=== PATIENT | male | born 1975 | race Caucasian/White ===

== ENCOUNTER 2019-08-18 08:42 | Emergency (ER) | payer BC, MEDICARE ==
--- NOTE | 2019-08-18 09:32 | EDM.PDOC ---
ED HPI GENERAL MEDICAL PROBLEM - General Chief Complaint: Lower Extremity Injury/Pain Stated Complaint: INNER THIGH PAIN POST SURGERY 9 DAYS Time Seen by Provider: 08/18/19 09:32 Source of Information: Reports: Patient History Limitations: Reports: No Limitations - History of Present Illness INITIAL COMMENTS - FREE TEXT/NARRATIVE: 43-year-old male who had a pacemaker placed on 08/09/2019 and also had cardiac catheterization performed with a right femoral approach on the same day. He has been doing well with both areas until middle of last week when he felt a pulling sensation in his right groin area and since that time has had pain which has developed just below the cardiac catheterization access site in his right groin and it has spread down his right medial thigh to just above his knee. This pain is worse with movements and when he tries to walk and he feels at times that his leg will "give out on him". The pain has been a 9/10 to the point of where he feels almost like crying and it is a sharp and shooting pain. He has had some mild nausea associated with the pain but no vomiting. No chest pain. No difficulty breathing. The site around his pacemaker in his left upper chest has some pain but it is improving and there is no redness associated with it. He has had no fevers or chills. He has known numbness or tingling in his right lower leg or foot. There are no other associated signs or symptoms. There are no other modifying factors. 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: Reports: Other (see below) (Nothing) Right Upper Leg Pain Score (Numeric/FACES): 8 - Related Data Allergies Allergy/AdvReac Type Severity Reaction Status Date / Time azithromycin [From Zithromax] Allergy Vomiting Verified 08/18/19 09:02 Home Meds: Home Meds Hydrocodone/Acetaminophen [[facility] 5-325 Tablet] 1 - 2 tab PO Q6H PRN #12 tablet 08/18/19 [Rx] Sacubitril/Valsartan [Entresto 24 mg-26 mg Tablet] 1 tab PO BID 08/18/19 [ History] carvediloL [Carvedilol] 3.125 mg PO BID 08/18/19 [History] cephALEXin [Cephalexin] 500 mg PO BID 08/18/19 [History] Past Medical History Cardiovascular History: Reports: Cardiomyopathy, Pacemaker Respiratory History: Reports: Sleep Apnea Gastrointestinal History: Reports: Chronic Diarrhea Musculoskeletal History: Reports: Muscular Dystrophy Neurological History: Reports: Migraines Psychiatric History: Reports: Anxiety, Depression - Past Surgical History HEENT Surgical History: Reports: Adenoidectomy, LASIK, Tonsillectomy Cardiovascular Surgical History: Reports: Pacer, Other (See Below) (Cardiac catheterization with (according to the patient) clean coronary arteries) GI Surgical History: Reports: Cholecystectomy Social & Family History - Family History Cardiac: Reports: Blood Clots/VTE/DVT - Tobacco Use Smoking Status *Q: Never Smoker - Alcohol Use Alcohol Use History: No - Living Situation & Occupation Occupation: Disabled Review of Systems - Review of Systems Review Of Systems: See Below Constitutional: Reports: No Symptoms Eyes: Reports: No Symptoms Ears: Reports: No Symptoms Nose: Reports: No Symptoms Mouth/Throat: Reports: No Symptoms Respiratory: Reports: No Symptoms Cardiovascular: Reports: No Symptoms GI/Abdominal: Reports: No Symptoms Genitourinary: Reports: No Symptoms Musculoskeletal: Reports: Leg Pain (Right medial thigh pain) Skin: Reports: Bruising (Along right medial thigh) Neurological: Reports: No Symptoms (Specifically, no weakness or dizziness.) ED EXAM, GENERAL - Physical Exam Exam: See Below Exam Limited By: No Limitations General Appearance: Alert, WD/WN, No Apparent Distress Eye Exam: Bilateral Eye: EOMI, Normal Inspection Ears: Normal External Exam, Hearing Grossly Normal Ear Exam: Bilateral Ear: Auricle Normal Nose: Normal Inspection, Normal Mucosa, No Blood Throat/Mouth: Normal Inspection, Normal Lips, Normal Oropharynx, Normal Voice, No Airway Compromise Head: Atraumatic, Normocephalic Neck: Normal Inspection, Supple, Non-Tender, Full Range of Motion Respiratory/Chest: No Respiratory Distress, Lungs Clear, Normal Breath Sounds, No Accessory Muscle Use, Chest Non-Tender, Prolonged Expiration Cardiovascular: Regular Rate, Rhythm, No JVD, No Murmur Peripheral Pulses: 2+: Radial (L), Radial (R), Femoral (R), Dorsalis Pedis (L), Dorsalis Pedis (R) GI/Abdominal: Normal Bowel Sounds, Soft, Non-Tender, No Mass Back Exam: Normal Inspection, Full Range of Motion Extremities: Normal Range of Motion, No Pedal Edema, Normal Capillary Refill, Other (Right groin area with some ecchymosis but I can feel no pulsatile mass and no definite hematoma.) Neurological: Alert, Oriented, CN II-XII Intact, Normal Cognition, No Motor/ Sensory Deficits Skin Exam: Warm, Dry, Intact, No Rash, Ecchymosis (Ecchymosis around the pacemaker site but no erythema. Some ecchymosis around the femoral area.) Course - Vital Signs Last Recorded V/S: Last Vital Signs Temp 37.2 C 08/18/19 10:49 Pulse 64 08/18/19 10:49 Resp 18 08/18/19 10:49 BP 106/64 08/18/19 10:49 Pulse Ox 92 L 08/18/19 10:49 - Orders/Labs/Meds Meds: Medications Discontinued Medications Generic Name Dose Route Start Last Admin Trade Name Patricia PRN Reason Stop Dose Admin Acetaminophen 325 mg 08/18/19 10:26 08/18/19 11:07 Tylenol PO 08/18/19 10:27 325 mg NOW ONE Administration Hydrocodone Bitart/Acetaminophen 1 tab 08/18/19 10:26 08/18/19 11:07 [facility] 325-5 Mg PO 08/18/19 10:27 1 tab ONETIME ONE Administration - Re-Assessments/Exams Free Text/Narrative Re-Assessment/Exam: 08/18/19 10:15: I had discussed patient's case with Dr. Dahl, ED physician at [facility], in regard to potential venous and arterial ultrasound of the right lower extremity and specifically the femoral area. I did also discuss with the I'll detect numerical control machine machinist about the availability of ultrasound next week and apparently the quality improvement engineer at [facility] does venous Doppler ultrasounds but does not do arterial Doppler ultrasound. And so the plan would now be for the patient to go up to the emergency department at [facility] where he could get an ultrasound performed out any pseudoaneurysm. The patient is in agreement with this plan. We'll give the patient a single dose of hydrocodone for his pain and a prescription for pain as well. He will go to the emergency department at [facility] via private vehicle. Departure - Departure Time of Disposition: 11:05 Disposition: DC/Tfer to Acute Hospital 02 Condition: Good Clinical Impression: Right groin pain, Right thigh pain Hematoma of right thigh Qualifiers: Encounter type: initial encounter Qualified Code(s): S70.11XA - Contusion of right thigh, initial encounter - Discharge Information Prescriptions: Hydrocodone/Acetaminophen [[facility] 5-325 Tablet] 1 - 2 tab PO Q6H PRN #12 tablet PRN Reason: Moderate to severe pain Referrals: Abdullahi Arias MD [Primary Care Provider] - Forms: ED Department Discharge Additional Instructions: Go to the emergency department at [facility] to have an ultrasound of the arteries and veins of your right leg and thigh. Sepsis Event Note - Evaluation Sepsis Screening Result: No Definite Risk - Focused Exam Vital Signs: Vital Signs Temp Pulse Resp BP Pulse Ox 08/18/19 10:49 37.2 C 64 18 106/64 92 L Date Exam was Performed: 08/18/19 Time Exam was Performed: 21:35
[2019-08-18] MEDS ORDERED: Acetaminophen/HYDROcodone 325-5 MG Tab PO ONE (10:26)
[2019-08-18] MEDS ORDERED: Acetaminophen 325 MG Tab PO ONE (10:26)
== END 2019-08-18 11:01 ==
LOC: FB.ED 08:42
DX: S70.11XA Contusion of right thigh, initial encounter (principal); R10.31 Right lower quadrant pain; Z88.8 Allergy status to other drugs, medicaments and biological substances; X58.XXXA Exposure to other specified factors, initial encounter
CPT/HCPCS: 99284; A9270

== ENCOUNTER 2024-02-13 09:44 | Inpatient (IN) | payer MEDICARE ==
[2024-02-13] MEDS ORDERED: Acetaminophen 325 MG Tab PO PRN (16:36)
[2024-02-13] MEDS ORDERED: Bisacodyl 10 MG Supp RECTAL PRN (16:36)
[2024-02-13] MEDS ORDERED: Lidocaine 4% 1 each Patch TOP PRN (16:48)
[2024-02-13] MEDS ORDERED: Sennosides/Docusate Sodium 50-8.6 MG Tab PO PRN (16:50)
[2024-02-13] MEDS: Sotalol 80 MG Tab PO SCH (21:05)
[2024-02-13] MEDS: Apixaban 5 MG Tab PO SCH (21:07)
[2024-02-13] MEDS: SACUBITRIL PO SCH (21:08)
[2024-02-13] MEDS: Melatonin 3 MG Tab PO SCH (21:08)
[2024-02-13] MEDS: VALSARTAN PO SCH (21:08)
[2024-02-14] MEDS: Multivitamin, Childrens Tab.Chew PO SCH (08:25)
[2024-02-14] MEDS: Tamsulosin 0.4 MG Cap.ER PO SCH (08:34)
[2024-02-14] MEDS: Sacubitril/Valsartan 24 MG-26 MG Tab PO SCH (08:48)
[2024-02-14] MEDS: Sodium Chloride 0.9% 500 ML IV ONE ×2 (09:29→11:06)
[2024-02-14 09:47] LABS: BASOPHILS PERCENT AUTO 0.7 % (0.3-3.8); EOSINOPHILS ABSOLUTE AUTO 0.3 x10-3/uL (0.0-0.6); EOSINOPHILS PERCENT AUTO 4.7 % (0.1-6.8); HEMATOCRIT 32.1 % (38.3-50.1); HEMOGLOBIN 10.5 g/dL (12.9-17.7); LYMPHOCYTES ABSOLUTE AUTO 0.8 x10-3/uL (0.5-4.5); LYMPHOCYTES PERCENT AUTO 11.4 % (15.8-45.3); MEAN CORPUSCULAR HEMOGLOBIN 28.8 pg (27.0-33.3); MEAN CORPUSCULAR HGB CONC 32.6 g/dL (28.7-35.3); MEAN CORPUSCULAR VOLUME 88.5 fL (80.8-98.7); MEAN PLATELET VOLUME 8.6 fL (6.7-11.0); MONOCYTES ABSOLUTE AUTO 0.8 x10-3/uL (0.0-1.2); MONOCYTES PERCENT AUTO 11.3 % (5.5-15.2); NEUTROPHILS ABSOLUTE AUTO 4.9 x10-3/uL (1.7-6.9); NEUTROPHILS PERCENT AUTO 71.9 % (40.3-71.8); PLATELET COUNT,PLT 286 x10(3)uL (117-477); RED BLOOD CELL COUNT 3.63 x10(6)uL (3.90-5.90); RED CELL DISTRIBUTION WIDTH 15.3 % (12.4-15.0); WHITE BLOOD CELL COUNT,WBC 6.9 x10-3/uL (3.2-10.1)
[2024-02-14] MEDS: Digoxin 125 MCG Tab PO SCH (09:53)
[2024-02-14] MEDS: Psyllium Husk Powder Sugar Free 5.85 GM Packet PO SCH (09:58)
[2024-02-14 09:59] LABS: A/G RATIO 0.6; ALANINE AMINOTRANSFERASE,ALT 25 U/L (12-36); ALBUMIN 2.5 g/dL (3.5-5.2); ALKALINE PHOSPHATASE 114 IU/L (56-112); ASPARTATE AMNIOTRANSFERASE,AST 24 IU/L (5-25); BILIRUBIN TOTAL 0.4 mg/dL (0.1-1.3); BLOOD UREA NITROGEN,BUN 25 mg/dL (7-18); BUN/CREATININE RATIO 27.8 (9-20); CARBON DIOXIDE,CO2 34 mmol/L (21-32); CHLORIDE,CL 102 mmol/L (100-110); CREATININE 0.9 mg/dL (0.70-1.30); EST CRCL DRUG DOSING (CG) 106.97 mL/min; ESTIMATED GFR 104 mL/min (>60); GLUCOSE RANDOM 107 mg/dL (80-116); POTASSIUM,K 4.7 mmol/L (3.5-5.3); PROTEIN TOTAL,TP 6.9 g/dL (6.0-8.0); SODIUM,NA 140 mmol/L (135-145)
[2024-02-14 10:48] LABS: APPEARANCE,URINE CLEAR (CLEAR); BILIRUBIN,URINE NEGATIVE (NEGATIVE); COLOR,URINE YELLOW (YELLOW); GLUCOSE,URINE NORMAL (NORMAL); KETONES,URINE NEGATIVE (NEGATIVE); LEUKOCYTE ESTERASE,URINE NEGATIVE (NEGATIVE); NITRITE,URINE NEGATIVE (NEGATIVE); OCCULT BLOOD,URINE NEGATIVE (NEGATIVE); PROTEIN,URINE NEGATIVE (NEGATIVE); UROBILINOGEN,URINE NORMAL (NEGATIVE)
[2024-02-15] MEDS: Ketorolac 30 MG/ML SDV IVPUSH ONE (04:19)
[2024-02-15] MEDS: Sodium Chloride 0.9% 500 ML IV ONE (05:18)
== END 2024-02-15 11:26 | DRG 948 ==
LOC: FB.MS 12:51
PROVIDERS: ADMIT Internal Medicine; ATTEND Internal Medicine
DX: R53.81 Other malaise (principal); G71.11 Myotonic muscular dystrophy; I48.91 Unspecified atrial fibrillation; K52.9 Noninfective gastroenteritis and colitis, unspecified; F41.9 Anxiety disorder, unspecified; F32.A Depression, unspecified; G47.30 Sleep apnea, unspecified; G43.909 Migraine, unspecified, not intractable, without status migrainosus; I95.9 Hypotension, unspecified; Z95.0 Presence of cardiac pacemaker; Z93.1 Gastrostomy status; Z88.1 Allergy status to other antibiotic agents; Z79.01 Long term (current) use of anticoagulants; Z79.899 Other long term (current) drug therapy; Z90.89 Acquired absence of other organs; Z90.49 Acquired absence of other specified parts of digestive tract; Z93.2 Ileostomy status
CPT/HCPCS: 36415; 71045; 80053; 81003; 84484; 85025; 87040; 93005; 93010; 94150; 97161-GP; 97530-GP; 99305; 99307; 99316; A9270-GY; J1885; J7040

== ENCOUNTER 2024-02-15 16:59 | Inpatient (IN) | payer MEDICARE ==
[2024-02-15] MEDS ORDERED: Sennosides/Docusate Sodium 50-8.6 MG Tab PO PRN (17:28)
[2024-02-15] MEDS ORDERED: Bisacodyl 10 MG Supp RECTAL PRN (17:37)
[2024-02-15] MEDS ORDERED: Lidocaine 4% 1 each Patch TOP PRN (17:45)
[2024-02-15] MEDS ORDERED: Acetaminophen 325 MG Tab PO PRN (18:01)
[2024-02-15] MEDS ORDERED: Sodium Chloride 0.9% 10 ML Syringe FLUSH PRN (19:45)
[2024-02-15] MEDS: Sodium Chloride 0.9% 1,000 ML IV ONE (20:25)
[2024-02-15] MEDS: Melatonin 3 MG Tab PO SCH (21:28)
[2024-02-15] MEDS: Apixaban 5 MG Tab PO SCH (21:28)
[2024-02-15] MEDS: Valsartan 40 MG Tab PO SCH (21:28)
[2024-02-15] MEDS: Sotalol 80 MG Tab PO SCH (21:28)
[2024-02-16] MEDS: Ketorolac 15 MG/ML SDV IVPUSH ONE (05:47)
[2024-02-16] MEDS: Digoxin 125 MCG Tab PO SCH (08:30)
[2024-02-16] MEDS: Multivitamin, Childrens Tab.Chew PO SCH (08:31)
[2024-02-16] MEDS: Tamsulosin 0.4 MG Cap.ER PO SCH (08:31)
[2024-02-16] MEDS: Psyllium Husk Powder Sugar Free 5.85 GM Packet PO SCH (08:33)
[2024-02-16] MEDS ORDERED: Baclofen 10 MG Tab PO PRN ×2 (09:49→09:50)
[2024-02-16] MEDS: Magnesium Oxide 400 MG Tab PO SCH (11:18)
[2024-02-17] MEDS: Psyllium Husk Powder Sugar Free 5.85 GM Packet PO SCH (08:10)
[2024-02-17] MEDS: traMADol 50 MG Tab PO PRN (17:48)
[2024-02-18] MEDS: Ondansetron 4 MG Tab.DIS PO PRN (12:57)
[2024-02-18] MEDS: Ondansetron 4 MG/2 ML SDV IVPUSH PRN (17:21)
[2024-02-23] MEDS ORDERED: Wheat Dextrin Powder 244 GM Container PO SCH (11:30)
== END 2024-02-23 12:25 | disposition home health service (06) | DRG 948 ==
LOC: FB.MS 17:18
PROVIDERS: ADMIT Family Medicine; ATTEND Family Medicine
DX: R53.81 Other malaise (principal); I10 Essential (primary) hypertension; G71.11 Myotonic muscular dystrophy; F41.9 Anxiety disorder, unspecified; I95.89 Other hypotension; F32.A Depression, unspecified; I48.91 Unspecified atrial fibrillation; Z93.2 Ileostomy status; Z95.0 Presence of cardiac pacemaker; Z79.01 Long term (current) use of anticoagulants; Z88.1 Allergy status to other antibiotic agents; Z90.89 Acquired absence of other organs; Z90.49 Acquired absence of other specified parts of digestive tract
CPT/HCPCS: 97161-GP; 97165-GO; 97530-GO; 97530-GP; A9270-GY; J1885; J2405; J7030; Q0162

== ENCOUNTER 2024-08-15 23:33 | Emergency (ER) | payer MEDICARE ==
[2024-08-15] MEDS: Sodium Chloride 0.9% 10 ML Syringe FLUSH PRN (23:45)
[2024-08-15] MEDS: Sodium Chloride 0.9% 1,000 ML IV ONE (23:45)
[2024-08-16 00:22] LABS: BASOPHILS ABSOLUTE AUTO 0.1 x10-3/uL (0.0-0.3); BASOPHILS PERCENT AUTO 0.8 % (0.3-3.8); EOSINOPHILS ABSOLUTE AUTO 0.1 x10-3/uL (0.0-0.6); EOSINOPHILS PERCENT AUTO 0.5 % (0.1-6.8); HEMATOCRIT 39.9 % (38.3-50.1); HEMOGLOBIN 12.6 g/dL (12.9-17.7); LYMPHOCYTES ABSOLUTE AUTO 0.5 x10-3/uL (0.5-4.5); LYMPHOCYTES PERCENT AUTO 5.1 % (15.8-45.3); MEAN CORPUSCULAR HGB CONC 31.6 g/dL (28.7-35.3); MEAN CORPUSCULAR VOLUME 82.3 fL (80.8-98.7); MEAN PLATELET VOLUME 8.6 fL (6.7-11.0); MONOCYTES ABSOLUTE AUTO 0.9 x10-3/uL (0.0-1.2); MONOCYTES PERCENT AUTO 8.8 % (5.5-15.2); NEUTROPHILS ABSOLUTE AUTO 8.5 x10-3/uL (1.7-6.9); NEUTROPHILS PERCENT AUTO 84.8 % (40.3-71.8); PLATELET COUNT,PLT 218 x10(3)uL (117-477); RED BLOOD CELL COUNT 4.85 x10(6)uL (3.90-5.90); RED CELL DISTRIBUTION WIDTH 19.3 % (12.4-15.0)
[2024-08-16 00:23] LABS: BLOOD UREA NITROGEN,BUN 27 mg/dL (7-18); BUN/CREATININE RATIO 33.8 (9-20); CALCIUM 9.6 mg/dL (8.6-10.2); CARBON DIOXIDE,CO2 31 mmol/L (21-32); CHLORIDE,CL 104 mmol/L (100-110); CREATININE 0.8 mg/dL (0.70-1.30); EST CRCL DRUG DOSING (CG) 121.25 mL/min; ESTIMATED GFR 108 mL/min (>60); GLUCOSE RANDOM 113 mg/dL (80-116); POTASSIUM,K 4.5 mmol/L (3.5-5.3); SODIUM,NA 141 mmol/L (135-145)
[2024-08-16 00:29] LABS: A/G RATIO 0.5; ALANINE AMINOTRANSFERASE,ALT 28 U/L (12-36); ALBUMIN 2.7 g/dL (3.5-5.2); ALKALINE PHOSPHATASE 128 IU/L (56-112); ASPARTATE AMNIOTRANSFERASE,AST 26 IU/L (5-25); BILIRUBIN TOTAL 0.8 mg/dL (0.1-1.3); PROTEIN TOTAL,TP 7.8 g/dL (6.0-8.0)
[2024-08-16] MEDS: Iopamidol 755 Mg/ML 100 ML Bottle IV ONE (00:30)
[2024-08-16 00:36] LABS: TSH ULTRASENSITIVE 1.16 IU/mL (0.36-3.74)
[2024-08-16] MEDS: fentaNYL 100 MCG/2 ML SDV IVPUSH STA (00:37)
[2024-08-16 00:57] LABS: BASE EXCESS ARTERIAL,POC -1 mmol/L (-2 - 3+); HCO3 ARTERIAL,POC 30 mmol/L (21-28); O2 SATURATION ARTERIAL,POC 91.9 % (94-98); PO2 ARTERIAL,POC 78 mmHg (83-108)
[2024-08-16] MEDS: Digoxin 500 MCG/2 ML Amp IVPUSH ONE (00:58)
[2024-08-16] MEDS: Sodium Chloride 0.9% 1,000 ML IV STA (01:00)
[2024-08-16 01:18] LABS: INFLUENZA A NAA NEGATIVE (NEGATIVE); INFLUENZA B NAA NEGATIVE (NEGATIVE); RESPIRATORY SYNCYTIAL VIR NAA NEGATIVE (NEGATIVE)
[2024-08-16 01:23] LABS: CORONAVIRUS COVID-19 NAA NEGATIVE (NEGATIVE)
[2024-08-16] MEDS: Albuterol/Ipratropium 3.0-0.5 MG/3 ML Neb Soln NEB ONE (01:29)
[2024-08-16] MEDS: LORazepam 2 MG/ML SDV IVPUSH PRN (01:30)
[2024-08-16] MEDS: Piperacillin/Tazobactam 3.375 GM in Sodium Chloride 0.9% 50 ML IV STA (01:32)
[2024-08-16] MEDS: VANCOmycin 1.5 GM/300 ML 1.5 GM in Premix Bag 1 BAG IV ONE (02:33)
[2024-08-16 02:41] LABS: BILIRUBIN,URINE NEGATIVE (NEGATIVE); GLUCOSE,URINE NORMAL (NORMAL); KETONES,URINE NEGATIVE (NEGATIVE); LEUKOCYTE ESTERASE,URINE NEGATIVE (NEGATIVE); NITRITE,URINE NEGATIVE (NEGATIVE); OCCULT BLOOD,URINE NEGATIVE (NEGATIVE); PROTEIN,URINE NEGATIVE (NEGATIVE); UROBILINOGEN,URINE 1 mg/dL (NEGATIVE)
[2024-08-16 02:47] LABS: APPEARANCE,URINE CLEAR (CLEAR); COLOR,URINE YELLOW (YELLOW)
[2024-08-16 03:02] LABS: BASE EXCESS ARTERIAL,POC -2 mmol/L (-2 - 3+); HCO3 ARTERIAL,POC 27 mmol/L (21-28); PO2 ARTERIAL,POC 70 mmHg (83-108)
[2024-08-16] MEDS: Diltiazem 25 MG/5 ML SDV IVPUSH ONE (03:04)
[2024-08-16] MEDS: Doxycycline 100 MG in Sodium Chloride 0.9% 100 ML IV ONE (03:04)
[2024-08-16] MEDS: cefTRIAXone 1 GM in Sodium Chloride 0.9% 50 ML IV ONE (03:04)
== END 2024-08-16 04:30 | disposition other institution (70) ==
LOC: FB.ED 23:33
DX: J18.9 Pneumonia, unspecified organism (principal); J96.22 Acute and chronic respiratory failure with hypercapnia; I10 Essential (primary) hypertension; Z88.1 Allergy status to other antibiotic agents; Z79.899 Other long term (current) drug therapy; Z90.49 Acquired absence of other specified parts of digestive tract
CPT/HCPCS: 0241U; 36415; 71045; 71260; 74177; 80053; 81003; 82803; 83605; 83735; 83880; 84443; 84484; 85025; 86140; 87040; 93005; 94640; 96361; 96365; 96366; 96367; 96375; 99285; J1160; J2060; J2543; J3010; J3372; Q9967; J7620